=== PATIENT | female | born 1990 | race Caucasian/White ===

== ENCOUNTER 2021-03-18 15:15 | Emergency (ER) | payer OTHER ==
[~2021-03-18] VITALS: Ht 175.3 cm; Wt 104.3 kg
--- NOTE | ~2021-03-18 | EMS ---
[address] [address] EMS Patient Care Report Name: IDA WALLACE Room #: DEP ANGELICA Mon#: [id number] Admission: 03/18/21 Attend Phys: Discharge: 03/18/21 Date of : [birth year] Report #: [id number] THIS REPORT FOR: //name// Report Transmitted: 03/19/2021 12:50 EMS Care Summary [place], [place]/[facility] Incident [id number] @ 03/18/2021 14:51 Incident Location [id number] [place] [address] Patient IDA WALLACE Female, 31 Years 1990 Patient Address [id number] [place] [address] Patient History Hypertension (HTN),Hyperlipidemia,Gastro-Esophageal Reflux Disease (GERD),IV Drug Use/Abuse,Bipolar II Disorder,Schizophrenia,Post Traumatic Stress Disorder (PTSD),Alcohol Abuse, Patient Allergies No known allergies, Patient Medications Buspirone, Clonazepam, Chief Complaint Confusion Disposition Transported No Lights/[place] Dispatch Reason Sick Person Transported To [facility] Narrative M528 dispatched for a 31 year old female conscious and breathing having altered [address] [address] EMS Patient Care Report Name: IDA WALLACE Room #: DEP ANGELICA Mon#: [id number] Admission: 03/18/21 Attend Phys: Discharge: 03/18/21 Date of : [birth year] Report #: [id number] LOC. Arrival at the scene EMS personnel find the patient in the lobby of the facility with staff. Patient acknowledges EMS presence is GCS 14 and oriented to person place and event. Patient has a patent airway is breathing adequately with strong regular radial pulses. Skin is pink warm and dry. Patient has mild confusion that staff advises began yesterday. Patient agrees to transport to [facility] for further evaluation. Patient is assisted to the stretcher and secured in the fowlers position using seatbelts and rails. Patient is moved to the ambulance and placed on the monitor to obtain VS and ECG. Glucose check conducted reveals hyperglycemia. VS are WNL. Transport is initiated. Arrival at the receiving facility patient condition is stable and unchanged. Assessment is unremarkable. Patient is offloaded and taken to ED room 9. RN is given report and transfer of care is completed. Signatures are obtained and M528 returns to service. Initial Vitals @15:00P: 74,R: 18,BP: 100/70,Pain: 0/10,GCS: 14,Glucose: 266,SpO2: 98,Revised Trauma: 12, @15:10P: 82,R: 16,BP: 108/72,Pain: 0/10,GCS: 15,SpO2: 99,Revised Trauma: 12, Assessments @14:58MENTAL:Event Oriented,Place Oriented,Person Oriented,Confused,SKIN:No Abnormalities,HEENT:Head/Face: No Abnormalities,Eyes: No Abnormalities,Neck/Airway: No Abnormalities,LUNG SOUNDS:General: No Abnormalities,Left Upper: No Abnormalities,Right Upper: No Abnormalities,Left Lower: No Abnormalities,Right Lower: No Abnormalities,ABDOMEN:General: No Abnormalities,Left Upper: No Abnormalities,Right Upper: No Abnormalities,Left Lower: No Abnormalities,Right Lower: No Abnormalities,PELVIS//GI:No Abnormalities,EXTREMITIES:Left Arm: No Abnormalities,Right Arm: No Abnormalities,Left Leg: No Abnormalities,Right Leg: No Abnormalities,PULSE:Radial: 2+ Normal,NEURO:No Abnormalities, Impression Altered Mental Status Procedures @14:58 ALS Assessment Response: UnchangedSucceeded Timeline 14:49,Call Received 14:49,Dispatch Notified 14:51,Dispatched 14:52,En Route 14:55,On Scene [address] [address] EMS Patient Care Report Name: IDA WALLACE Room #: DEP Yaa#: [id number] Admission: 03/18/21 Attend Phys: Discharge: 03/18/21 Date of : [birth year] Report #: [id number] 14:57,At Patient 14:58,ALS Assessment,Response: UnchangedSucceeded, 15:00,BP: 100/70 M,PULSE: 74,RR: 18 R,SPO2: 98 Ox,ETCO2: ,B,PAIN: 0,GCS: 14, 15:02,Depart Scene 15:09,At Destination 15:10,BP: 108/72 M,PULSE: 82,RR: 16 R,SPO2: 99 Ox,ETCO2: ,BG: ,PAIN: 0,GCS: 15, 15:20,Call Closed Disclaimer v1.1 Copyright 2021 [employer] This EMS Care Summary contains data elements from the applicable legal record (which may be displayed differently). It is designed to provide pertinent information for the following purposes: continuity of care, clinical quality, and state data reporting. The complete legal record is available to ED staff and administrators of the receiving hospital in [employer]'s Patient Tracker. All data is provided "as is."
[2021-03-18 15:41] LABS: BASOPHILS 0.5 % (0.0-2.0); EOSINOPHILS 2.8 % (0.0-3.0); HEMATOCRIT 41.9 % (37.0-47.0); HEMOGLOBIN 14.4 gm/dL (12.0-15.0); MCH 29.8 pg (26.0-34.0); MCHC 34.4 g/dL (28.0-37.0); MCV 86.9 fL (80.0-100.0); MONOCYTES 6.2 % (1.0-8.0); PLATELET COUNT 326 thou/uL (150-400); POLYS 76.5 % (36.0-66.0); RBC 4.82 mil/uL (4.20-5.00); RDW 13.2 % (10.5-14.5); WBC 9.1 thou/uL (4.0-11.0)
[2021-03-18 15:50] LABS: ANION GAP 8 mmol/L (7-16); BUN 18 mg/dL (7-18); CALCIUM 9.4 mg/dL (8.5-10.1); CHLORIDE 101 mmol/L (98-107); CO2 26 mmol/L (21-32); CREATININE 1.1 mg/dL (0.6-1.0); GLUCOSE 92 mg/dL (74-106); SODIUM 135 mmol/L (136-145)
[2021-03-18 15:56] LABS: URINE BLOOD NEGATIVE (Negative); URINE CLARITY CLEAR; URINE COLOR YELLOW; URINE GLUCOSE-RANDOM* NEGATIVE (Negative); URINE KETONES NEGATIVE (Negative); URINE LEUKOCYTES-REFLEX TRACE (Negative); URINE NITRITE-REFLEX NEGATIVE (Negative); URINE PROTEIN (DIPSTICK) TRACE (Negative); URINE SPECIFIC GRAVITY 1.025 (1.005-1.035)
[2021-03-18 15:56] LABS: ALBUMIN 3.8 g/dL (3.4-5.0); SALICYLATE < 2.8 mg/dL (2.8-20.0); SGOT 21 U/L (15-37); SGPT 31 U/L (14-59); TOTAL BILIRUBIN 0.5 mg/dL (0.2-1.0)
[2021-03-18 15:59] LABS: ICTOTEST (BILI CONFIRMATORY) Negative (Negative); URINE BILIRUBIN NEGATIVE (Negative)
[2021-03-18 16:05] LABS: AMP/METHAMP Negative (Negative); BARBITURATES Negative (Negative); BENZODIAZEPINES POSITIVE (Negative); COCAINE Negative (Negative); METHADONE Negative (Negative); OPIATES Negative (Negative); PCP Negative (Negative)
[2021-03-18 19:06] VITALS: BP 118/70
--- NOTE | 2021-03-19 08:07 | EKG ---
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 : 1990 Requested By: Angelica Woods Order Number: [id number] MD: Dennys Pascual Measurements Intervals [place] Rate: 73 P: 13 [place]: 176 QRS: 33 QRSD: 102 T: 152 QT: 439 QTc: 484 Interpretive Statements Sinus rhythm Nonspecific ST and T wave abnormality Baseline wander in lead(s) V6 No previous ECG available for comparison Electronically Signed On 03-19-2021 8:07:25 ONLINE CONTENT COORDINATOR by Dennys Pascual [email or web address] <ELECTRONICALLY SIGNED> By: Dennys Pascual MD, [facility] 03/19/21 0807 1536 1536 Dennys Pascual MD, FACC /EPI
== END 2021-03-18 19:08 | disposition home or self-care (01) ==
LOC: ER 15:15
PROVIDERS: Physician Assistant
DX: U07.1 COVID-19 (principal); E86.0 Dehydration; R41.82 Altered mental status, unspecified; F41.9 Anxiety disorder, unspecified; F32.9 Major depressive disorder, single episode, unspecified; K21.9 Gastro-esophageal reflux disease without esophagitis; I10 Essential (primary) hypertension

== ENCOUNTER 2021-03-23 12:45 | Emergency (ER) | payer OTHER ==
[~2021-03-23] VITALS: Ht 175.3 cm; Wt 110.7 kg
--- NOTE | ~2021-03-23 | EMS ---
[address] [address] EMS Patient Care Report Name: IDA WALLACE Room #: DEP ANGELICA Mon#: [id number] Admission: 03/23/21 Attend Phys: Discharge: 03/23/21 Date of : [birth year] Report #: [id number] THIS REPORT FOR: //name// Report Transmitted: 03/24/2021 15:07 EMS Care Summary [place], [place]/[facility] Incident [id number] @ 03/23/2021 12:00 Incident Location [address] [facility] Patient IDA WALLACE Female, 31 Years 1990 Patient Address [id number] [place] [address], [place] [address] Patient History Hypertension (HTN),Hyperlipidemia,Gastro-Esophageal Reflux Disease (GERD),IV Drug Use/Abuse,Bipolar II Disorder,Schizophrenia,Post Traumatic Stress Disorder (PTSD),Alcohol Abuse, Patient Allergies No known allergies, Patient Medications Clonazepam, Buspirone, Chief Complaint hallucinations Disposition Transported No Lights/[place] Dispatch Reason Altered Mental Status Transported To [facility] Narrative called on female pt with an altered mental status.upon arrival pt found a and o [address] [address] EMS Patient Care Report Name: IDA WALLACE Room #: DEP Yaa#: [id number] Admission: 03/23/21 Attend Phys: Discharge: 03/23/21 Date of : [birth year] Report #: [id number] times and in sitting in wheelchair.pt has no complaints of pain or sob.rn states pt was having hallucinations and crawling on the floor, thinking she was a squirrel .rn states pt has not eaten any food or drank anything all weekend also and rn states pt has been in isolation for covid since Tuesday.pt moved to stretcher and secured.cpss done and no deficits noted.bs checked and was 88 and temp 98.0.pt transported to the medical center er without change in condition.report and care given to rn at bed 7 and pt moved to er bed. Initial Vitals @12:29P: 75,R: 16,BP: 122/70,Pain: 0/10,GCS: 15,Temp: 98F,Glucose: 88,CO: 0,SpO2: 94,Revised Trauma: 12, Assessments @12:20MENTAL:No Abnormalities,SKIN:No Abnormalities,HEENT:Head/Face: No Abnormalities,Eyes: No Abnormalities,Neck/Airway: No Abnormalities,LUNG SOUNDS:General: No Abnormalities,Left Upper: No Abnormalities,Right Upper: No Abnormalities,Left Lower: No Abnormalities,Right Lower: No Abnormalities,ABDOMEN:General: No Abnormalities,Left Upper: No Abnormalities,Right Upper: No Abnormalities,Left Lower: No Abnormalities,Right Lower: No Abnormalities,PELVIS//GI:No Abnormalities,EXTREMITIES:Left Arm: No Abnormalities,Right Arm: No Abnormalities,Left Leg: No Abnormalities,Right Leg: No Abnormalities,PULSE:NEURO:No Abnormalities, Impression Altered Mental Status Procedures @12:20 ALS Assessment Response: UnchangedSucceeded @12:28 General Comments Response: Unchanged Timeline 11:58,Call Received 11:58,Dispatch Notified 12:00,Dispatched 12:05,En Route 12:11,On Scene 12:20,At Patient 12:20,ALS Assessment,Response: UnchangedSucceeded, 12:28,General Comments,Response: Unchanged 12:29,BP: 122/70 M,PULSE: 75,RR: 16 R,SPO2: 94 Ox,ETCO2: ,B,PAIN: 0,GCS: 15, 12:32,Depart Scene 12:40,At Destination 13:04,Call Closed [facility] [address] [place] [address] EMS Patient Care Report Name: IDA WALLACE Room #: DEP [facility].#: [id number] Admission: 03/23/21 Attend Phys: Discharge: 03/23/21 Date of : [birth year] Report #: [id number] Disclaimer v1.1 Copyright 2021 [employer] This EMS Care Summary contains data elements from the applicable legal record (which may be displayed differently). It is designed to provide pertinent information for the following purposes: continuity of care, clinical quality, and state data reporting. The complete legal record is available to ED staff and administrators of the receiving hospital in [facility]'s Patient Tracker. All data is provided "as is."
[2021-03-23] MEDS ORDERED: CLONAZEPAM 0.50.5 M1 PO (13:13)
[2021-03-23] MEDS ORDERED: TYLENOL325 MG PO (13:13)
[2021-03-23] MEDS ORDERED: BUSPIRONE HCL10 MG PO (13:13)
[2021-03-23] MEDS ORDERED: CLONIDINE HCL0.1 MG PO (13:14)
[2021-03-23] MEDS ORDERED: HYDROCHLOROTH12.5 M1 PO (13:18)
[2021-03-23] MEDS ORDERED: IBUPROFEN 200200 M1 PO (13:18)
[2021-03-23] MEDS ORDERED: LITHIUM CARBON300 M7 PO (13:18)
[2021-03-23] MEDS ORDERED: VIVITROL380 MG IM (13:19)
[2021-03-23] MEDS ORDERED: ZOCOR20 MG PO (13:20)
[2021-03-23] MEDS ORDERED: OMEPRAZOLE 20 M20 M1 PO (13:20)
[2021-03-23] MEDS ORDERED: SEROQUEL 100 M100 M1 PO (13:20)
[2021-03-23] MEDS ORDERED: TOPAMAX 25 MG T25 M1 PO (13:20)
[2021-03-23] MEDS ORDERED: VITAMIN D3250 MC1 PO (13:21)
[2021-03-23] MEDS ORDERED: VENLAFAXINE HC150 M1 PO (13:21)
[2021-03-23 13:44] LABS: ABSOLUTE NEUTROPHILS 6.8 thou/uL (1.4-8.2); BASOPHILS 0.6 % (0.0-2.0); EOSINOPHILS 2.4 % (0.0-3.0); HEMATOCRIT 44.3 % (37.0-47.0); HEMOGLOBIN 14.7 gm/dL (12.0-15.0); LYMPHOCYTES 14.9 % (24.0-44.0); MCHC 33.1 g/dL (28.0-37.0); MCV 87.5 fL (80.0-100.0); MONOCYTES 8.6 % (1.0-8.0); PLATELET COUNT 324 thou/uL (150-400); POLYS 73.5 % (36.0-66.0); RBC 5.06 mil/uL (4.20-5.00); RDW 13.2 % (10.5-14.5); WBC 9.3 thou/uL (4.0-11.0)
[2021-03-23 13:51] LABS: URINE BLOOD NEGATIVE (Negative); URINE COLOR YELLOW; URINE GLUCOSE-RANDOM* NEGATIVE (Negative); URINE KETONES 1+ (Negative); URINE NITRITE-REFLEX NEGATIVE (Negative); URINE PROTEIN (DIPSTICK) 1+ (Negative); URINE SPECIFIC GRAVITY >= 1.030 (1.005-1.035)
[2021-03-23 13:54] LABS: ICTOTEST (BILI CONFIRMATORY) Negative (Negative); URINE BILIRUBIN NEGATIVE (Negative); URINE CLARITY HAZY; URINE LEUKOCYTES-REFLEX 1+ (Negative)
[2021-03-23 13:57] LABS: AMP/METHAMP Negative (Negative); BARBITURATES Negative (Negative); BENZODIAZEPINES Negative (Negative); COCAINE Negative (Negative); METHADONE Negative (Negative); OPIATES Negative (Negative); PCP Negative (Negative)
[2021-03-23 14:03] LABS: ALBUMIN 4.1 g/dL (3.4-5.0); CALCIUM 10.1 mg/dL (8.5-10.1); CREATININE 1.2 mg/dL (0.6-1.0); SALICYLATE 3.1 mg/dL (2.8-20.0); TOTAL BILIRUBIN 0.5 mg/dL (0.2-1.0); TOTAL PROTEIN 7.7 g/dL (6.4-8.2)
[2021-03-23 14:03] LABS: SQUAMOUS >10 Many /LPF (0-3)
[2021-03-23 14:04] LABS: BACTERIA-REFLEX >30 Many /HPF (None Seen); CASTS None Seen /LPF (None Seen); CRYSTALS None Seen /LPF (None Seen); MUCUS >6 Heavy strn/LPF (None Seen); URINE RBC None Seen /HPF (NONE SEEN)
[2021-03-23 14:06] LABS: POTASSIUM 2.6 mmol/L (3.5-5.1)
--- NOTE | 2021-03-23 15:15 | EKG ---
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 : 1990 Requested By: Nieves Figueredo Order Number: [id number] MD: Hakeem Goode Measurements Intervals [place] Rate: 64 P: 21 [place]: 168 QRS: 17 QRSD: 104 T: QT: 506 QTc: 522 Interpretive Statements Sinus rhythm Nonspecific T abnrm, anterolateral leads Prolonged QT interval Compared to ECG 03/18/2021 15:36:59 Prolonged QT interval now present ST (T wave) deviation no longer present Electronically Signed On 03-23-2021 15:15:45 WET CROWN BLOCKING OPERATOR by Hakeme Goode [email or web address] <ELECTRONICALLY SIGNED> By: Hakeem Goode MD, [facility] 03/23/21 1515 D: 01/1331 31 Hakeem Goode MD, FACC /EPI
[2021-03-23 18:53] VITALS: BP 000/000
== END 2021-03-23 18:54 ==
LOC: ER 12:45
PROVIDERS: Nurse Practitioner
DX: E87.6 Hypokalemia (principal); N39.0 Urinary tract infection, site not specified; F41.9 Anxiety disorder, unspecified; F32.9 Major depressive disorder, single episode, unspecified; K21.9 Gastro-esophageal reflux disease without esophagitis; I10 Essential (primary) hypertension; Z79.899 Other long term (current) drug therapy

== ENCOUNTER 2021-03-30 14:14 | Inpatient (IN) | payer OTHER ==
[~2021-03-30] VITALS: Ht 172.7 cm; Wt 108.2 kg
--- NOTE | ~2021-03-30 | EMS ---
[address] [address] EMS Patient Care Report Name: IDA WALLACE Room #: 203-P ADM IN M.R.#: [id number] Admission: 03/30/21 Attend Phys: Shahram Ochoa Discharge: Date of : [birth year] Report #: [id number] THIS REPORT FOR: //name// Report Transmitted: 03/31/2021 14:02 EMS Care Summary [place], [place]/[facility] Incident [id number] @ 03/30/2021 13:37 Incident Location [address] [facility] Patient IDA WALLACE Female, 31 Years 1990 Patient Address [address] [place] [address] Patient History Hypertension (HTN),Hyperlipidemia,Gastro-Esophageal Reflux Disease (GERD),IV Drug Use/Abuse,Bipolar II Disorder,Schizophrenia,Post Traumatic Stress Disorder (PTSD),Alcohol Abuse, Patient Allergies No known allergies, Patient Medications Buspirone, Clonazepam, Chief Complaint Change in mental status Disposition Transported No Lights/[place] Dispatch Reason Altered Mental Status Transported To [facility] Narrative Staff reports that pt. has been confused and not acting right for about a week now. She just came out of COVID isolation two days ago. Staff Reports she has [facility] [address] [place] [address] EMS Patient Care Report Name: IDA WALLACE Room #: 203-P ADM IN M.R.#: [id number] Admission: 03/30/21 Attend Phys: Shahram Ochoa Discharge: Date of : [birth year] Report #: [id number] been on Macrobid for a UTI but does not seem to be getting any better. Pt. has trouble focusing but is answering questions right for EMS. Denies pain or discomfort. Still has productive cough and goopy eyes. Pt. found confused and talking to herself but no obvious life threats rule out metabolic/lab issues UTI etc. assisted to cot, secured, loaded, vitals, bG, transported to [place] without changes, pt. moved to ED bed, rails up, care transferred to staff development coordinator with report given Initial Vitals @14:09P: 70,BP: 130/90,Pain: 0/10,Glucose: 109,CO: 7,SpO2: 95, @13:59P: 68,CO: 2,SpO2: 68, @13:55P: 78,BP: 115/76,CO: 1,SpO2: 99, @14:06P: 63,R: 20,GCS: 15,SpO2: 94, Assessments @14:10MENTAL:Place Oriented,Person Oriented,Hallucinations,Confused,SKIN:HEENT:LUNG SOUNDS:ABDOMEN:PELVIS//GI:EXTREMITIES:PULSE:NEURO: Impression Altered Mental Status Procedures @13:50 ALS Assessment Response: UnchangedSucceeded Timeline 13:37,Call Received 13:37,Dispatch Notified 13:37,Dispatched 13:40,En Route 13:44,At Patient 13:44,On Scene 13:50,ALS Assessment,Response: UnchangedSucceeded, 13:55,BP: 115/76 M,PULSE: 78,RR: R,SPO2: 99 Ox,ETCO2: ,BG: ,PAIN: ,GCS: , 13:58,Depart Scene 13:59,BP: / M,PULSE: 68,RR: R,SPO2: 68 Ox,ETCO2: ,BG: ,PAIN: ,GCS: , 14:06,BP: / M,PULSE: 63,RR: 20 R,SPO2: 94 Ox,ETCO2: ,BG: ,PAIN: ,GCS: 15, 14:09,BP: 130/90 M,PULSE: 70,RR: R,SPO2: 95 Ox,ETCO2: ,B,PAIN: 0,GCS: , 14:12,At Destination 14:12,Call Closed [facility] [address] [place] [address] EMS Patient Care Report Name: IDA WALLACE Room #: 203-P ADM IN M.R.#: [id number] Admission: 03/30/21 Attend Phys: Shahram Ochoa Discharge: Date of : [birth year] Report #: [id number] Disclaimer v1.1 Copyright 2021 [employer] This EMS Care Summary contains data elements from the applicable legal record (which may be displayed differently). It is designed to provide pertinent information for the following purposes: continuity of care, clinical quality, and state data reporting. The complete legal record is available to ED staff and administrators of the receiving hospital in [facility]'s Patient Tracker. All data is provided "as is."
[~2021-03-30 14:14] MED LIST: BUSPIRONE HCL10 MG PO; CLONAZEPAM 0.50.5 M1 PO; CLONIDINE HCL0.1 MG PO; HYDROCHLOROTH12.5 M1 PO; IBUPROFEN 200200 M1 PO; LITHIUM CARBON300 M7 PO; OMEPRAZOLE 20 M20 M1 PO; SEROQUEL 100 M100 M1 PO; TOPAMAX 25 MG T25 M1 PO; TYLENOL325 MG PO; VENLAFAXINE HC150 M1 PO; VITAMIN D3250 MC1 PO; VIVITROL380 MG IM; ZOCOR20 MG PO
[2021-03-30 14:59] LABS: URINE BLOOD NEGATIVE (Negative); URINE GLUCOSE-RANDOM* TRACE (Negative); URINE KETONES 2+ (Negative); URINE LEUKOCYTES-REFLEX TRACE (Negative); URINE PROTEIN (DIPSTICK) 2+ (Negative); URINE SPECIFIC GRAVITY 1.025 (1.005-1.035)
[2021-03-30 15:02] LABS: URINE NITRITE-REFLEX POSITIVE (Negative)
[2021-03-30 15:03] LABS: URINE CLARITY HAZY; URINE COLOR BROWNISH
[2021-03-30 15:05] LABS: AMP/METHAMP Negative (Negative); BARBITURATES Negative (Negative); BENZODIAZEPINES POSITIVE (Negative); COCAINE Negative (Negative); METHADONE Negative (Negative); OPIATES Negative (Negative); PCP Negative (Negative)
[2021-03-30 15:14] LABS: URINE BILIRUBIN 2+ (Negative)
[2021-03-30 15:15] LABS: ICTOTEST (BILI CONFIRMATORY) Positive (Negative)
[2021-03-30 15:19] LABS: SQUAMOUS >10 Many /LPF (0-3); URINE WBC-REFLEX 6-15 Few /HPF (0-5)
[2021-03-30 15:20] LABS: BACTERIA-REFLEX >30 Many /HPF (None Seen); CASTS None Seen /LPF (None Seen); CRYSTALS None Seen /LPF (None Seen); URINE RBC None Seen /HPF (NONE SEEN)
[2021-03-30 15:36] LABS: ABSOLUTE NEUTROPHILS 8.5 thou/uL (1.4-8.2); BASOPHILS 0.3 % (0.0-2.0); EOSINOPHILS 1.7 % (0.0-3.0); HEMATOCRIT 42.3 % (37.0-47.0); LYMPHOCYTES 7.1 % (24.0-44.0); MCH 29.1 pg (26.0-34.0); MCHC 33.1 g/dL (28.0-37.0); MONOCYTES 6.6 % (1.0-8.0); PLATELET COUNT 255 thou/uL (150-400); POLYS 84.3 % (36.0-66.0); RBC 4.81 mil/uL (4.20-5.00); RDW 13.4 % (10.5-14.5); WBC 10.1 thou/uL (4.0-11.0)
[2021-03-30 15:44] LABS: ANION GAP 8 mmol/L (7-16); BUN 25 mg/dL (7-18); CALCIUM 9.8 mg/dL (8.5-10.1); CHLORIDE 105 mmol/L (98-107); CO2 26 mmol/L (21-32); CREATININE 1.5 mg/dL (0.6-1.0); GLUCOSE 111 mg/dL (74-106); POTASSIUM 3.5 mmol/L (3.5-5.1); SODIUM 139 mmol/L (136-145)
[2021-03-30 15:50] LABS: ALBUMIN 4.2 g/dL (3.4-5.0); SALICYLATE < 2.8 mg/dL (2.8-20.0); SGOT 25 U/L (15-37); SGPT 27 U/L (14-59); TOTAL BILIRUBIN 0.6 mg/dL (0.2-1.0); TOTAL PROTEIN 7.2 g/dL (6.4-8.2)
[2021-03-31 02:53] LABS: ALBUMIN 3.2 g/dL (3.4-5.0); CREATININE 1.1 mg/dL (0.6-1.0); PHOSPHORUS 1.3 mg/dL (2.6-4.7); POTASSIUM 3.1 mmol/L (3.5-5.1)
--- NOTE | 2021-03-31 08:09 | EKG ---
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 : 1990 Requested By: Rusty Dave Order Number: [id number] MD: Dennys Pascual Measurements Intervals [place] Rate: 70 P: 25 NE: 179 QRS: 37 QRSD: 101 T: 94 QT: 498 QTc: 538 Interpretive Statements Sinus rhythm Probable left atrial enlargement Abnrm T, consider ischemia, anterolateral lds Prolonged QT interval Compared to ECG 03/23/2021 13:32:40 T wave abnormality is more pronounced Electronically Signed On 03-31-2021 8:09:02 OPERATIONAL REVIEW SERGEANT by Dennys Pascual [email or web address] <ELECTRONICALLY SIGNED> By: Dennys Pascual MD, [facility] 03/31/21 0809 18 18 Dennys Pascual MD, [facility] /EPI
--- NOTE | 2021-03-31 12:11 | EKG ---
[place] [address] [address] [place] [address] ELECTROCARDIOGRAM REPORT Name: IDA WALLACE Room #: 170-5 ADM IN M.R.#: [id number] Admission: 03/30/21 Attend Phys: Shahram Ochoa Discharge: Date of : [birth year] Report #: [id number] [facility] ED Test Date: 2021-03-31 Test Time: 11:17:29 Pat Name: IDA WALLACE Department: Room: 170 5 Gender: F Residential Program Coordinator: : 1990 Requested By: Shahram Ochoa Order Number: [id number] MD: Hakeem Goode Measurements Intervals [place] Rate: 62 P: 40 [place]: 167 QRS: 47 QRSD: 107 T: 109 QT: 487 QTc: 495 Interpretive Statements Sinus rhythm Consider right atrial enlargement Abnormal T, consider ischemia, lateral leads Compared to ECG 03/30/2021 15:19:24 T-wave abnormality now present Possible ischemia still present Electronically Signed On 03-31-2021 12:10:58 INSTRUMENT REPAIR SPECIALIST by Hakeem Goode [email or web address] <ELECTRONICALLY SIGNED> By: Hakeem Goode MD, [facility] 03/31/21 1210 111 111 Hakeem Goode MD, [facility] /EPI
[2021-03-31 14:48] VITALS: BP 106/61
[2021-03-31 15:16] VITALS: BP 104/64
[2021-03-31 16:29] VITALS: BP 103/63
[2021-03-31 20:08] VITALS: BP 116/70
[2021-03-31 23:32] LABS: ALBUMIN 3.2 g/dL (3.4-5.0); CALCIUM 7.8 mg/dL (8.5-10.1); CREATININE 0.8 mg/dL (0.6-1.0); PHOSPHORUS 2.2 mg/dL (2.6-4.7); POTASSIUM 3.6 mmol/L (3.5-5.1)
[2021-04-01] VITALS (7 sets, daily range): BP systolic 103–127; BP diastolic 60–87
[2021-04-01 10:00] LABS: HEMATOCRIT 32.2 % (37.0-47.0); MCH 29.2 pg (26.0-34.0); MCHC 32.7 g/dL (28.0-37.0); MCV 89.5 fL (80.0-100.0); RBC 3.6 mil/uL (4.20-5.00); RDW 13.7 % (10.5-14.5)
[2021-04-01 10:05] LABS: HEMOGLOBIN 10.5 gm/dL (12.0-15.0)
[2021-04-01 10:18] LABS: ALBUMIN 3.3 g/dL (3.4-5.0); CALCIUM 8.2 mg/dL (8.5-10.1); CREATININE 0.8 mg/dL (0.6-1.0); PHOSPHORUS 2.2 mg/dL (2.6-4.7); POTASSIUM 3.6 mmol/L (3.5-5.1)
[2021-04-02] VITALS (20 sets, daily range): BP systolic 86–146; BP diastolic 46–99
[2021-04-02 04:54] LABS: ALBUMIN 3.3 g/dL (3.4-5.0); CALCIUM 8.2 mg/dL (8.5-10.1); CREATININE 0.8 mg/dL (0.6-1.0); PHOSPHORUS 1.8 mg/dL (2.5-4.9); POTASSIUM 3.5 mmol/L (3.5-5.1)
[2021-04-02 09:02] LABS: URINE BILIRUBIN NEGATIVE (Negative); URINE BLOOD 3+ (Negative); URINE CLARITY CLOUDY; URINE COLOR YELLOW; URINE GLUCOSE-RANDOM* NEGATIVE (Negative); URINE KETONES NEGATIVE (Negative); URINE LEUKOCYTES 1+ (Negative); URINE NITRITE NEGATIVE (Negative); URINE PROTEIN (DIPSTICK) TRACE (Negative); URINE SPECIFIC GRAVITY 1.025 (1.005-1.035)
[2021-04-02 09:31] LABS: CASTS None Seen /LPF (None Seen); CRYSTALS None Seen /LPF (None Seen); SQUAMOUS 0-3 Few /LPF (0-3); URINE RBC >20 Many /HPF (NONE SEEN); URINE WBC 6-15 Few /HPF (NONE SEEN)
[2021-04-02 09:52] LABS: BE(vivo) -6.7 mmol/L (-2 to +3); HCO3 16.3 mmol/L (22.0-26.0); PCO2 25.9 mmHg (35.0-45.0); PO2 56.5 mmHg (80.0-100.0); pH 7.418 (7.360-7.450); sO2 90.5 % (92.0-98.0)
[2021-04-02 11:41] LABS: CALCIUM 8.3 mg/dL (8.5-10.1); CREATININE 0.8 mg/dL (0.6-1.0); PHOSPHORUS 2.1 mg/dL (2.5-4.9)
[2021-04-02 13:53] LABS: HCO3 17.1 mmol/L (22.0-26.0); PCO2 30.1 mmHg (35.0-45.0); pH 7.372 (7.360-7.450); sO2 99.2 % (92.0-98.0)
[2021-04-03] VITALS (140 sets, daily range): BP systolic 71–203; BP diastolic 38–158
[2021-04-03 03:54] LABS: HEMATOCRIT 31.1 % (37.0-47.0); HEMOGLOBIN 10.5 gm/dL (12.0-15.0); MCH 29.8 pg (26.0-34.0); MCHC 33.9 g/dL (28.0-37.0); MCV 87.9 fL (80.0-100.0); RBC 3.53 mil/uL (4.20-5.00); RDW 13.9 % (10.5-14.5); WBC 8.9 thou/uL (4.0-11.0)
[2021-04-03 04:11] LABS: ALBUMIN 2.7 g/dL (3.4-5.0); CALCIUM 8.4 mg/dL (8.5-10.1); CREATININE 0.7 mg/dL (0.6-1.0); POTASSIUM 3.5 mmol/L (3.5-5.1); TOTAL BILIRUBIN 1.1 mg/dL (0.2-1.0); TOTAL PROTEIN 5.6 g/dL (6.4-8.2)
--- NOTE | 2021-04-03 09:53 | 2DMMODE ---
[facility] [address] [place] [address] 2 D/M-MODE ECHOCARDIOGRAM Name: IDA WALLACE Room #: 244-P ADM IN M.R.#: [id number] Admission: 03/30/21 Attend Phys: Shahram Ochoa Discharge: Date of : [birth year] Report #: [id number] THIS REPORT FOR: cc: Renny Wallis MD, Dennis R MD [place],Alejandro Escobar MD ~ APPROVED REPORT Study performed: 04/03/2021 08:33:34 EXAM: Comprehensive 2D, Doppler, and color-flow Echocardiogram Patient Location: Echo lab Room #: 244 BSA: 2.24 HR: 56 bpm BP: 106/60 mmHg Rhythm: NSR Other Information Study Quality: Adequate Technically limited study due to patient on ventilator. Indications AMS 2D Dimensions IVSd: 10.25 (7-11mm) LVOT Diam: 23.34 (18-24mm) LVDd: 49.43 mm PWd: 10.73 (7-11mm) Ascending Ao: 31.01 (22-36mm) LVDs: 35.05 (25-40mm) Left Atrium: 37.98 (27-40mm) Aortic Root: 31.23 mm Volumes Left Atrial Volume (Systole) Single Plane 4CH: 34.49 mL Single Plane 2CH: 49.24 mL Biplane LA Volume: 59.00 mL LA ESV Index: 26.00 mL/m2 Aortic Valve AoV Peak Ismael.: 1.21 m/s AO Peak Gr.: 5.83 mmHg LVOT Max P.66 mmHg LVOT Max V: 0.64 m/s [facility] [address] [place] [address] 2 D/M-MODE ECHOCARDIOGRAM Name: IDA WALLACE Room #: 244-P [facility] IN ..#: [id number] Admission: 03/30/21 Attend Phys: Shahram Brown Apr Discharge: Date of : [birth year] Report #: [id number] SMAMIE Vmax: 2.28 cm2 Mitral Valve E/A Ratio: 2.1 MV Decel. Time: 352.86 ms MV E Max Ismael.: 0.78 m/s MV A Ismael.: 0.37 m/s MV PHT: 102.33 ms IVRT: 78.43 ms Pulmonary Valve PV Peak Ismael.: 0.82 m/s PV Peak Gr.: 2.69 mmHg Pulmonary Vein P Vein S: 0.47 m/s P Vein A: 0.27 m/s P Vein D: 0.45 m/s P Vein A Dur.: 87.7 msec P Vein S/D Ratio: 1.04 Tricuspid Valve TR Peak Ismael.: 2.38 m/s RAP Estimate: 7.00 mmHg TR Peak Gr.: 22.63 mmHg RVSP: 29.00 mmHg Left Ventricle The left ventricle is normal size. There is normal LV segmental wall motion. There is normal left ventricular wall thickness. Left ventricular systolic function is normal. LVEF is 50-55%. Right Ventricle The right ventricle is normal size. The right ventricular systolic function is normal. Atria The left atrium size is normal. The right atrium size is normal. Aortic Valve The aortic valve is normal in structure. No aortic regurgitation is present. There is no aortic valvular stenosis. Mitral Valve The mitral valve is normal in structure. Mild mitral regurgitation. No evidence of mitral valve stenosis. Tricuspid Valve The tricuspid valve is normal in structure. Mild tricuspid regurgitation. PAP 29 mmHg [facility] [address] [place] [address] 2 D/M-MODE ECHOCARDIOGRAM Name: IDA WALLACE Room #: 244-P ADM IN M.R.#: [id number] Admission: 03/30/21 Attend Phys: Shahram Rogers Discharge: Date of : [birth year] Report #: [id number] Pulmonic Valve The pulmonary valve is normal in structure. There is no pulmonic valvular regurgitation. Great Vessels The aortic root is normal in size. IVC is not well visualized. Pericardium There is no pericardial effusion. No pleural effusion. <Conclusion> The left ventricle is normal size. There is normal left ventricular wall thickness. Left ventricular systolic function is normal. The right ventricle is normal size. The left atrium size is normal. The aortic valve is normal in structure. Mild mitral regurgitation. Mild tricuspid regurgitation. <ELECTRONICALLY SIGNED> By: Alejandro Garcia MD 04/03/2153 2 2 Alejandro Garcia MD /INF
[2021-04-03 10:32] LABS: BE(vivo) -4.3 mmol/L (-2 to +3); HCO3 19.9 mmol/L (22.0-26.0); PO2 109.8 mmHg (80.0-100.0); pH 7.385 (7.360-7.450)
--- NOTE | 2021-04-03 15:34 | EKG ---
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: HARDIK : 1990 Requested By: Yong Shell Order Number: [id number] MD: Hakeem Goode Measurements Intervals [place] Rate: 48 P: 35 [place]: 167 QRS: 104 QRSD: 104 T: 174 QT: 523 QTc: 468 Interpretive Statements Sinus bradycardia Compared to ECG 03/31/2021 11:17:29 Left posterior fascicular block now present Sinus rhythm no longer present Possible ischemia still present Electronically Signed On 04-03-2021 15:34:02 HOUSING RELOCATION by Hakeem Goode [email or web address] <ELECTRONICALLY SIGNED> By: Hakeem Goode MD, [facility] 04/03/21 1534 1145 1145 Hakeem Goode MD, [facility] /EPI
[2021-04-04] VITALS (111 sets, daily range): BP systolic 90–129; BP diastolic 52–80
[2021-04-05] VITALS (94 sets, daily range): BP systolic 71–151; BP diastolic 20–97
[2021-04-05 05:21] LABS: HEMATOCRIT 28.3 % (37.0-47.0); HEMOGLOBIN 9.7 gm/dL (12.0-15.0); MCH 30.2 pg (26.0-34.0); MCHC 34.3 g/dL (28.0-37.0); MCV 87.9 fL (80.0-100.0); RBC 3.22 mil/uL (4.20-5.00); RDW 13.5 % (10.5-14.5); WBC 8.5 thou/uL (4.0-11.0)
[2021-04-05 06:10] LABS: ALBUMIN 2.4 g/dL (3.4-5.0); CALCIUM 8.2 mg/dL (8.5-10.1); CREATININE 0.6 mg/dL (0.6-1.0); MAGNESIUM 1.9 mg/dL (1.8-2.4); PHOSPHORUS 3.5 mg/dL (2.5-4.9); POTASSIUM 3.1 mmol/L (3.5-5.1)
[2021-04-05 14:32] LABS: BE(vivo) -4.6 mmol/L (-2 to +3); HCO3 19.1 mmol/L (22.0-26.0); PCO2 30.6 mmHg (35.0-45.0); PO2 116.5 mmHg (80.0-100.0); pH 7.413 (7.360-7.450); sO2 98.3 % (92.0-98.0)
[2021-04-06] VITALS (24 sets, daily range): BP systolic 105–128; BP diastolic 56–82
[2021-04-06 05:06] LABS: ALBUMIN 2.3 g/dL (3.4-5.0); CALCIUM 8.2 mg/dL (8.5-10.1); CREATININE 0.4 mg/dL (0.6-1.0); MAGNESIUM 1.8 mg/dL (1.8-2.4); PHOSPHORUS 2.9 mg/dL (2.5-4.9)
[2021-04-07] VITALS (46 sets, daily range): BP systolic 95–149; BP diastolic 53–94
[2021-04-07 04:15] LABS: HEMATOCRIT 28.1 % (37.0-47.0); HEMOGLOBIN 9.4 gm/dL (12.0-15.0); MCH 29.5 pg (26.0-34.0); MCHC 33.6 g/dL (28.0-37.0); MCV 87.8 fL (80.0-100.0); RBC 3.2 mil/uL (4.20-5.00); RDW 13.4 % (10.5-14.5); WBC 6.9 thou/uL (4.0-11.0)
[2021-04-07 04:51] LABS: CALCIUM 8.7 mg/dL (8.5-10.1); CREATININE 0.5 mg/dL (0.6-1.0); POTASSIUM 3.2 mmol/L (3.5-5.1)
[2021-04-08] VITALS (38 sets, daily range): BP systolic 96–138; BP diastolic 46–79
[2021-04-08 05:51] LABS: CALCIUM 7.8 mg/dL (8.5-10.1); CREATININE 0.5 mg/dL (0.6-1.0); POTASSIUM 3.4 mmol/L (3.5-5.1)
[2021-04-08 12:49] LABS: BE(vivo) -0.3 mmol/L (-2 to +3); HCO3 22.8 mmol/L (22.0-26.0); sO2 97.7 % (92.0-98.0)
[2021-04-08 16:54] LABS: BE(vivo) -3.3 mmol/L (-2 to +3); HCO3 20.9 mmol/L (22.0-26.0); PCO2 34.9 mmHg (35.0-45.0); PO2 159.1 mmHg (80.0-100.0); pH 7.396 (7.360-7.450); sO2 99.1 % (92.0-98.0)
[2021-04-09] VITALS (31 sets, daily range): BP systolic 111–145; BP diastolic 64–96
[2021-04-09 06:25] LABS: HEMATOCRIT 29.9 % (37.0-47.0); HEMOGLOBIN 10.1 gm/dL (12.0-15.0); MCH 29.5 pg (26.0-34.0); MCHC 33.7 g/dL (28.0-37.0); MCV 87.7 fL (80.0-100.0); RBC 3.41 mil/uL (4.20-5.00); RDW 13.6 % (10.5-14.5); WBC 8.1 thou/uL (4.0-11.0)
[2021-04-09 06:36] LABS: CALCIUM 8.6 mg/dL (8.5-10.1); CREATININE 0.4 mg/dL (0.6-1.0); POTASSIUM 3.7 mmol/L (3.5-5.1)
[2021-04-10] VITALS (46 sets, daily range): BP systolic 84–145; BP diastolic 50–107
[2021-04-10 05:23] LABS: HEMOGLOBIN 9.5 gm/dL (12.0-15.0); MCH 30.8 pg (26.0-34.0); MCHC 35.1 g/dL (28.0-37.0); MCV 87.8 fL (80.0-100.0); RBC 3.08 mil/uL (4.20-5.00); WBC 9.5 thou/uL (4.0-11.0)
[2021-04-10 05:34] LABS: CALCIUM 8.3 mg/dL (8.5-10.1); CREATININE 0.5 mg/dL (0.6-1.0); POTASSIUM 3.7 mmol/L (3.5-5.1)
--- NOTE | 2021-04-10 10:08 | PATH ---
[facility] [address] [place] [address] PATHOLOGY RPT PROCEDURE Name: IDA WALLACE Room #: 244-P ADM IN M.R.#: [id number] Admission: 03/30/21 Date of : [birth year] Discharge: Report #: [id number] Path Case #: [id number] Note [facility] Accession Number: [id number] TESTS RESULT FLAG UNITS REF RANGE LAB Clinician Provided Cytology Information No. of containers..01 Other (Miscellaneous) Source: BAL - RUL DIAGNOSIS: BAL - RUL NEGATIVE FOR MALIGNANT CELLS. SCANT CELLULARITY WITH FEW PULMONARY MACROPHAGES, BRONCHIAL EPITHELIAL CELLS, RBCs AND INFLAMMATORY CELLS PRESENT. Signed out by: Ravi Bonilla MD, Pathologist NPI- [id number] Performed by: Amairani Riojas, Promotion Writer ([facility]) Gross description: 01 16ML, PINK, HAZY /LCS 04/06/2021 1511 Local FLAG LEGEND: L-Low Normal,H-High Normal,LL-Alert Low,HH-Alert High <-Panic Low,>-Panic High,A-Abnormal,AA-Critical Abnormal Performed at: [address] [place] [address] Vlad Harris MD, [address] [place] [phone] Ravi Bonilla MD, Specimen Comment: A courtesy copy of this report has been sent to [phone], [phone] Specimen Comment: [phone], Specimen Comment: Report sent to / DR ZAVALA Specimen Comment: A duplicate report has been generated due to demographic updates. Performed at: [address], [place], [place] [address] MD Vlad Harris MD Phone: [phone]
[2021-04-11] VITALS (22 sets, daily range): BP systolic 104–142; BP diastolic 61–91
[2021-04-11 04:55] LABS: HEMATOCRIT 32.7 % (37.0-47.0); HEMOGLOBIN 11.1 gm/dL (12.0-15.0); MCH 30.1 pg (26.0-34.0); MCHC 33.9 g/dL (28.0-37.0); MCV 88.8 fL (80.0-100.0); RBC 3.68 mil/uL (4.20-5.00); RDW 14.2 % (10.5-14.5); WBC 6.5 thou/uL (4.0-11.0)
[2021-04-11 04:58] LABS: CALCIUM 8.9 mg/dL (8.5-10.1); CREATININE 0.5 mg/dL (0.6-1.0); POTASSIUM 3.8 mmol/L (3.5-5.1)
[2021-04-12] VITALS (44 sets, daily range): BP systolic 103–133; BP diastolic 62–89
[2021-04-12 05:55] LABS: CALCIUM 7.4 mg/dL (8.5-10.1); CREATININE 0.5 mg/dL (0.6-1.0); POTASSIUM 3.8 mmol/L (3.5-5.1)
[2021-04-13] VITALS (44 sets, daily range): BP systolic 108–164; BP diastolic 64–104
[2021-04-13 06:20] LABS: CALCIUM 7.7 mg/dL (8.5-10.1); CREATININE 0.5 mg/dL (0.6-1.0); POTASSIUM 3.3 mmol/L (3.5-5.1)
[2021-04-14] VITALS (48 sets, daily range): BP systolic 107–148; BP diastolic 54–97
[2021-04-14 05:06] LABS: HEMATOCRIT 33.2 % (37.0-47.0); HEMOGLOBIN 10.7 gm/dL (12.0-15.0); MCH 28.8 pg (26.0-34.0); MCHC 32.3 g/dL (28.0-37.0); MCV 89.2 fL (80.0-100.0); RBC 3.73 mil/uL (4.20-5.00); WBC 11.8 thou/uL (4.0-11.0)
[2021-04-14 05:11] LABS: CALCIUM 8.4 mg/dL (8.5-10.1); CREATININE 0.4 mg/dL (0.6-1.0); POTASSIUM 3.5 mmol/L (3.5-5.1)
--- NOTE | 2021-04-14 10:11 | EEG ---
[facility] [place] [address] ELECTROENCEPHALOGRAM Name: IDA WALLACE Room #: 244-P [facility] IN M.R.#: [id number] Admission: 03/30/21 Attend Phys: Shahram Panchal Discharge: Date of : [birth year] Report #: [id number] THIS REPORT FOR: //name// DATE OF SERVICE: 04/02/2021 This patient is being evaluated for altered mental status. EEG was attempted, but the EEG shows a very low activity, is low voltage, it was difficult to assess as the patient is on propofol. Photic stimulation is unremarkable. IMPRESSION: This patient's EEG is very poorly formed. That can be because of medication or encephalopathy. The patient will require another EEG after the patient is off of sedation. Thank you very much for this referral. <ELECTRONICALLY SIGNED> By: Geronimo Gama MD 04/14/21 1011 1714 1814 Geronimo Gama MD /nt
--- NOTE | 2021-04-14 10:11 | HC ---
[facility] [place] [address] CONSULTATION Name: IDA WALLACE Room #: 244-P ADM IN M.R.#: [id number] Admission: 03/30/21 Attend Phys: Shahram Ochoa Discharge: Date of : 89 Report #: [id number] THIS REPORT FOR: cc: Renny Wallis MD, Dennis R MD Khosla,Geronimo Boateng MD ~ DATE OF SERVICE: 04/02/2021 HISTORY OF PRESENT ILLNESS: This is a 31-year-old female patient who was evaluated by me for altered mental status. The patient is in ICU. She is intubated. No family member is here. All the history is from the records. Apparently, this patient has multiple psychiatric issues like bipolar disorder and schizophrenia, posttraumatic stress disorder and some alcohol abuse. She was admitted here with altered mental status. She was found to have lithium toxicity. It looks like she was minimally responsive earlier in the Emergency Room, but since then she has been pretty unresponsive. She has been seen by multiple consultants here. Nurses have not noticed any seizure activity in this patient. REVIEW OF SYSTEMS: From the records and some of the records indicate that this patient has multiple issues. The big problem has been psychiatric issues in this patient, but apparently has some hypertension, hyperlipidemia and drug abuse. Staff has reported that she was not responding properly and that she apparently had some urinary tract infection recently. This is all the 14-point review of system, I can get in this patient. PAST MEDICAL HISTORY: Positive for psychiatric problem. Psychiatry is on the case. FAMILY HISTORY: Unavailable. SOCIAL HISTORY: As summarized above. PHYSICAL EXAMINATION: Very limited. She was completely sedated. She had no response of any kind. Even her plantars were not elicitable. Pupils were difficult to tell. She is intubated. She is moderately built individual. Her blood pressure was running about 88/55, respirations 16 and pulse is 52. Ammonia level was somewhat high at 33. TSH was normal. LABORATORY DATA: She did have a CT scan of the head and an EEG. They were reviewed and did not show any acute abnormality. IMPRESSION AND PLAN: Presently, it is difficult to evaluate the patient because she is completely sedated. Apparently, she was not very responsive, but then her breathing was not very good either. At the present stay, she is not ready to go for any further testing. History is so poor. I gave her one dose of [facility] [address] [place] [address] CONSULTATION Name: IDA WALLACE Room #: 244-P [facility] IN M.R.#: [id number] Admission: 03/30/21 Attend Phys: Shahram Ochoa Discharge: Date of : 89 Report #: [id number] thiamine today and I will defer to esthetician if they want to continue that or not depending upon more history, which may be available later on. Teleneurology will follow up this patient from tomorrow morning. She probably will need some further workup like MRI if she does not wake up. Presently, she is in no condition to go any place for MRI. Thank you very much for this referral and if you have any questions, please feel free to contact me. <ELECTRONICALLY SIGNED> By: Geronimo Gama MD 04/14/21 1011 [id number] 2216 Geronimo Gama MD /nt
[2021-04-15] VITALS (44 sets, daily range): BP systolic 115–138; BP diastolic 65–93
[2021-04-15 04:55] LABS: HEMATOCRIT 33.5 % (37.0-47.0); HEMOGLOBIN 11.2 gm/dL (12.0-15.0); MCH 29.6 pg (26.0-34.0); MCHC 33.3 g/dL (28.0-37.0); MCV 88.9 fL (80.0-100.0); PLATELET COUNT 400 thou/uL (150-400); RBC 3.77 mil/uL (4.20-5.00); RDW 14.3 % (10.5-14.5); WBC 9.4 thou/uL (4.0-11.0)
[2021-04-15 05:08] LABS: ALBUMIN 2.7 g/dL (3.4-5.0); CALCIUM 8.1 mg/dL (8.5-10.1); CREATININE 0.4 mg/dL (0.6-1.0); POTASSIUM 3.8 mmol/L (3.5-5.1); TOTAL BILIRUBIN 0.2 mg/dL (0.2-1.0)
[2021-04-15 11:18] LABS: ABSOLUTE NEUTROPHILS 6.4 thou/uL (1.4-8.2); METAMYELOCYTES 1 %; MYELOCYTES 1 %
[2021-04-15 11:19] LABS: ANISOCYTOSIS 1+
[2021-04-16] VITALS (41 sets, daily range): BP systolic 124–158; BP diastolic 78–104
[2021-04-16 06:10] LABS: HEMATOCRIT 34.4 % (37.0-47.0); HEMOGLOBIN 11.4 gm/dL (12.0-15.0); MCH 29.4 pg (26.0-34.0); MCV 88.9 fL (80.0-100.0); RBC 3.87 mil/uL (4.20-5.00); RDW 14.6 % (10.5-14.5); WBC 8.7 thou/uL (4.0-11.0)
[2021-04-16 06:21] LABS: CALCIUM 8.8 mg/dL (8.5-10.1); CREATININE 0.5 mg/dL (0.6-1.0); POTASSIUM 3.4 mmol/L (3.5-5.1)
--- NOTE | 2021-04-16 11:51 | HC ---
[facility] [place] [address] CONSULTATION Name: IDA WALLACE Room #: 244-P ADM IN M.R.#: [id number] Admission: 03/30/21 Attend Phys: Shahram Ochoa Discharge: Date of : 89 Report #: [id number] THIS REPORT FOR: cc: Renny Wallis MD, Dennis R MD Walton, Mark S. MD ~ DATE OF SERVICE: 04/13/2021 REASON FOR CONSULTATION: Need for secure airway. HISTORY OF PRESENT ILLNESS: The patient is a 31-year-old female who presented via the Emergency Department on 03/30/2021 with lithium toxicity. She was seen on 03/18/2021, 03/23/2021 and then finally 03/30/2021. She presented for altered mental status. She lives at [facility] and the EMS was called. She was found to have lithium toxicity significantly and ended up with intubation in the ICU. This was extubated after weaning and patient got into trouble with increased stridor and significant flailing and difficulty to control and 4-point constraints. She was reintubated and sedated. The patient has been difficult to control in the ICU on her sedation. She has been evaluated by Psychiatry. I talked with the psychiatrist today. She feels that there may be a neurologic component to this airway stridor either as a component of her underlying psychiatric disease or as a component of the medication. In any extent, Dr. Figueroa had formulated the plan to evaluate in the operating room with extubation. I have reviewed this plan with Dr. Her, her billet sawyer on coverage. The problem with this is that although this can be done in the operating room and everything seemed fine on return to the ICU after the postoperative period, she could have a recurrence of this problem at any time requiring reintubation. It would seem with this significant complicated history, it would make sense to secure her airway and then deal with the underlying psychiatric and neurologic problems secondarily. I have discussed this with her psychiatrist as well as Dr. Her. PAST MEDICAL HISTORY: Significant for altered mental status, lithium toxicity, COVID-19, dehydration, hypocalcemia, recent UTI. The patient carries a diagnosis of bipolar disease. She also has panic disorder, anxiety, depression, heroin use, alcohol abuse, nightmare disorder, gastroesophageal reflux disease and hypertension. REVIEW OF SYSTEMS: Not possible as the patient is intubated and sedated. MEDICATIONS: Reviewed per APR. PHYSICAL EXAMINATION: Shows a well-developed, overweight 31-year-old female seen in the intensive care unit with her nurse. She is intubated and sedated. The patient has an indwelling endotracheal tube. Trachea is in the midline. There is no other neck mass present. Oral cavity is difficult to examine [address] [address] CONSULTATION Name: IDA WALLACE Room #: 244-P [facility] IN M.R.#: [id number] Admission: 03/30/21 Attend Phys: Shahram Ochoa Discharge: Date of : 89 Report #: [id number] secondary to the endotracheal tube and her feeding tube. ASSESSMENT: 1. Extubation failure with stridor and agitation, requiring reintubation on 04/07. 2. [place] toxicity with altered mental status changes on admission, 03/25. PLAN: Discussion with Dr. Her today. The patient can be taken to the operating room and weaned and extubated. The problem with that is that the airway obstruction and stridor may not occur immediately because of the indwelling tube being present, but may occur later requiring a third intubation. In addition, the patient is on maximal narcotic and propofol and difficult to contain with those medications. It makes sense to secure her airway even if just temporarily to allow for further workup and treatment of her psychiatric and neurologic underlying pathology. My partner, Dr. Dominguez, will be covering hospital inpatient consultations. I will discuss with him and see if there is a date available this week when this can be done. I appreciate the consultation and ability to share in this complex patient. <ELECTRONICALLY SIGNED> By: Dillon Fuentes MD 04/16/21 1151 1132 1720 Dillon Fuentes MD /nt
[2021-04-16 15:44] LABS: BE(vivo) 0.9 mmol/L (-2 to +3); HCO3 23.1 mmol/L (22.0-26.0); PCO2 29.9 mmHg (35.0-45.0); PO2 85.2 mmHg (80.0-100.0); pH 7.506 (7.360-7.450); sO2 97.3 % (92.0-98.0)
[2021-04-17] VITALS (42 sets, daily range): BP systolic 112–143; BP diastolic 69–114
[2021-04-18] VITALS (47 sets, daily range): BP systolic 103–139; BP diastolic 63–106
[2021-04-18 04:14] LABS: BE(vivo) -1.6 mmol/L (-2 to +3); HCO3 20.8 mmol/L (22.0-26.0); PCO2 28.6 mmHg (35.0-45.0); PO2 99.5 mmHg (80.0-100.0); pH 7.479 (7.360-7.450)
[2021-04-18 06:10] LABS: ABSOLUTE NEUTROPHILS 6.5 thou/uL (1.4-8.2); BASOPHILS 0.5 % (0.0-2.0); EOSINOPHILS 2.9 % (0.0-3.0); HEMOGLOBIN 12.2 gm/dL (12.0-15.0); LYMPHOCYTES 15.8 % (24.0-44.0); MCH 29.3 pg (26.0-34.0); MCV 88.7 fL (80.0-100.0); MONOCYTES 9.8 % (1.0-8.0); PLATELET COUNT 316 thou/uL (150-400); RBC 4.18 mil/uL (4.20-5.00); RDW 14.9 % (10.5-14.5); WBC 9.2 thou/uL (4.0-11.0)
[2021-04-18 06:33] LABS: ALBUMIN 3.1 g/dL (3.4-5.0); CALCIUM 8.6 mg/dL (8.5-10.1); CREATININE 0.4 mg/dL (0.6-1.0); POTASSIUM 3.5 mmol/L (3.5-5.1); TOTAL BILIRUBIN 0.3 mg/dL (0.2-1.0); TOTAL PROTEIN 6.3 g/dL (6.4-8.2)
[2021-04-19] VITALS (47 sets, daily range): BP systolic 106–135; BP diastolic 60–97
[2021-04-19 22:35] LABS: URINE BILIRUBIN NEGATIVE (Negative); URINE BLOOD 2+ (Negative); URINE CLARITY CLEAR; URINE COLOR YELLOW; URINE GLUCOSE-RANDOM* NEGATIVE (Negative); URINE KETONES NEGATIVE (Negative); URINE LEUKOCYTES-REFLEX NEGATIVE (Negative); URINE NITRITE-REFLEX NEGATIVE (Negative); URINE PROTEIN (DIPSTICK) NEGATIVE (Negative); URINE UROBILINOGEN 0.2 E.U./dl (0.2-1.0)
[2021-04-19 23:26] LABS: CASTS None Seen /LPF (None Seen); MUCUS None Seen strn/LPF (None Seen); SQUAMOUS None Seen /LPF (0-3); URINE RBC 3-10 Few /HPF (NONE SEEN)
[2021-04-19 23:27] LABS: BACTERIA-REFLEX None Seen /HPF (None Seen); CRYSTALS None Seen /LPF (None Seen); URINE WBC-REFLEX 0-5 Rare /HPF (0-5)
[2021-04-20] VITALS (18 sets, daily range): BP systolic 113–143; BP diastolic 72–98
[2021-04-20 06:33] LABS: CALCIUM 8.9 mg/dL (8.5-10.1); CREATININE 0.4 mg/dL (0.6-1.0); POTASSIUM 3.5 mmol/L (3.5-5.1)
--- NOTE | 2021-05-04 12:42 | H ---
[facility] [place] [address] HISTORY AND PHYSICAL Name: IDA WALLACE Room #: 244-P [facility] IN M.R.#: [id number] Admission: 03/30/21 Attend Phys: Gerardorlando Kevin Don Discharge: 04/21/21 Date of : 89 Report #: [id number] THIS REPORT FOR: cc: Renny Wallis MD, Dennis R MD Ellis, Steven F. MD ~ DATE OF SERVICE: 04/20/2021 DATE OF OPERATION: 04/20/2021 PREOPERATIVE DIAGNOSES: Intoxication, respiratory failure. POSTOPERATIVE DIAGNOSES: Intoxication, respiratory failure. PROCEDURE: Tracheostomy. DESCRIPTION OF PROCEDURE: The patient was brought to the operating room. She is in her hospital bed. She was prepped and draped sterilely for tracheostomy tube placement. She has been intubated and ventilated for longer than 2 weeks and is unable to wean secondary to elevated blood pressure, whenever she comes off of sedation. It is medically necessary that she proceed with tracheostomy at this time. I attempted to contact her guardian at the state the previous week on and never received a call back, but based on the nursing conversation with her, the guardian is aware that she is proceeding with tracheostomy as she was unable to wean. The master barber has also given full support for the medical necessity of proceeding with tracheostomy at this time. The patient is incapacitated and not capable of giving her own consent. In the operating room, she was prepped and draped sterilely. 1% lidocaine with 1:100,000 epinephrine was infiltrated in the low midline of the neck. A 15 blade was used to incise the skin of the neck 2 fingerbreadths above the notch of the sternum. Subcutaneous tissues were dissected sharply through the platysma. Subplatysmal flap was developed superiorly to the thyroid cartilage and inferiorly to the sternal notch. Strap muscles were divided in the midline. The thyroid isthmus was identified. The thyroid isthmus was retracted superiorly. Pretracheal fascia was divided and the third tracheal ring was identified. The anterior aspect of the third tracheal ring was removed utilizing an 11 blade and a curved Perla scissor. The tracheostomy is dilated with a trousseau dilator. The endotracheal tube was withdrawn to just above the tracheostomy site. A #8 Shiley low pressure cuffed tube was then placed into the trachea and easily ventilated the patient. This is confirmed with CO2 return on inhalation. The tracheostomy tube was sewn in place superiorly with 2 silk sutures and secured again with a tracheostomy tie about the neck. The patient was transferred back to the intensive care unit where she will remain sedated and ventilated and slowly withdrawn [place] [address] HISTORY AND PHYSICAL Name: IDA WALLACE Room #: 244-P DIS IN M.R.#: [id number] Admission: 03/30/21 Attend Phys: Shahram Ochoa Discharge: 04/21/21 Date of : 89 Report #: [id number] managed by the senior courtroom clerk. She tolerated the procedure well with no immediate complications. <ELECTRONICALLY SIGNED> By: Tommie Dominguez MD 05/04/21 1242 0915 0948 Tommie Dominguez MD /nt
== END 2021-04-21 | DRG 4 ==
LOC: ER 14:14 → ICU 16:23 → EROBS 16:23 → 2N 16:23 → ICU 04-02 12:06
PROVIDERS: Emergency Medicine; Internal Medicine; Internal Medicine Nephrology; Internal Medicine Pulmonary Disease; Nurse Practitioner Family; Pediatrics; ADMIT Hospitalist; ATTEND Hospitalist
PROC: 0BH17EZ Insertion of Endotracheal Airway into Trachea, Via Natural or Artificial Opening (ICD-10-PCS; 2021-03-31)
PROC: 5A1955Z Respiratory Ventilation, Greater than 96 Consecutive Hours (ICD-10-PCS; 2021-03-31)
PROC: 02HV33Z Insertion of Infusion Device into Superior Vena Cava, Percutaneous Approach (ICD-10-PCS; principal; 2021-04-02)
PROC: 0B9C8ZX Drainage of Right Upper Lung Lobe, Via Natural or Artificial Opening Endoscopic, Diagnostic (ICD-10-PCS; principal; 2021-04-02)
PROC: 0B110F4 Bypass Trachea to Cutaneous with Tracheostomy Device, Open Approach (ICD-10-PCS; 2021-04-20)
PROC: 0DH68UZ Insertion of Feeding Device into Stomach, Via Natural or Artificial Opening Endoscopic (ICD-10-PCS; 2021-04-21)
DX: T56.891A Toxic effect of other metals, accidental (unintentional), initial encounter (principal); G92.8 Other toxic encephalopathy; J96.21 Acute and chronic respiratory failure with hypoxia; N39.0 Urinary tract infection, site not specified; N17.9 Acute kidney failure, unspecified; E87.0 Hyperosmolality and hypernatremia; K56.7 Ileus, unspecified; Z20.822 Contact with and (suspected) exposure to COVID-19; F41.9 Anxiety disorder, unspecified; F32.9 Major depressive disorder, single episode, unspecified; K21.9 Gastro-esophageal reflux disease without esophagitis; I10 Essential (primary) hypertension; F19.10 Other psychoactive substance abuse, uncomplicated; J39.8 Other specified diseases of upper respiratory tract; R41.0 Disorientation, unspecified; E66.01 Morbid (severe) obesity due to excess calories; R13.10 Dysphagia, unspecified; E87.6 Hypokalemia; R53.81 Other malaise; G89.4 Chronic pain syndrome; D64.9 Anemia, unspecified; B95.2 Enterococcus as the cause of diseases classified elsewhere; K59.00 Constipation, unspecified; M25.50 Pain in unspecified joint; M79.10 Myalgia, unspecified site; Y92.89 Other specified places as the place of occurrence of the external cause; Z68.37 Body mass index [BMI] 37.0-37.9, adult
CPT/HCPCS: 10078; 10081; 27000; 50101; 50386; 50398; 56526; 62110; 62900